=== PATIENT | male | born 1975 | race Caucasian/White ===

== ENCOUNTER 2017-04-02 23:35 | Emergency (ER) | payer OTHER ==
[2017-04-03 00:18] VITALS: BP 125/67; PULSE 65; TEMP 98.1; BMI 23.3
[2017-04-03] MEDS ORDERED: KETOROLAC TROMETHAMINE 60 MG/2 ML VIAL IM ONE (00:57)
[2017-04-03] MEDS ORDERED: KETOROLAC TROMETHAMINE 30 MG/1 ML VIAL ONE (01:03)
--- NOTE | 2017-04-03 01:52 | PDOC ---
History of Present Illness - General Chief Complaint: Back Pain Stated Complaint: PAIN Time Seen by Provider: 04/03/17 00:45 - History of Present Illness Initial Comments: 04/03/17 01:44 CHIEF COMPLAINT: low back pain HISTORY OF PRESENT ILLNESS: 41 yo M with no PMH presents to ED with low back pain x 3 days. Patient states the pain is to b/l sides of his low back; denies loss of bowel or bladder function, inability to walk, loss of sensation to lower extremities, fever, chills, nausea, vomiting, diarrhea . No recent travel or sick contacts. PAST MEDICAL HISTORY: Denies past medical history FAMILY HISTORY: Denies SOCIAL HISTORY: Denies tobacco, alcohol, illicit drug use. SURGICAL HISTORY: Denies ALLERGIES: No known drug allergies REVIEW OF SYSTEMS as per HPI PHYSICAL EXAM General Appearance: Well-appearing, appropriately dressed. No apparent distress. HEENT: EOMI, PERRLA. No photophobia, scleral icterus. Respiratory/Chest: Lungs CTAB. Cardiovascular: RRR. S1, S2. Gastrointestinal/Abdominal: Normal bowel sounds. Abdomen soft, non-distended. No tenderness or rebound tenderness. No organomegaly, pulsatile mass, guarding , hernia, hepatomegaly, splenomegaly. Musculoskeletal/Extremities: Tenderness to b/l lower back muscles on palpation. FROM of all extremities, normal capillary refill. Pelvis Stable. No CVA tenderness. No tenderness to extremities, pedal edema, swelling, erythema or deformity. Normal gait. Integumentary: Appropriate color, dry, warm. No cyanosis, erythema, jaundice or rash Neurologic: picker box operator II-XII intact. Fully oriented, alert. Appropriate mood/affect. Motor strength 5/5. No appreciable EOM palsy, facial droop or sensory deficit. 04/03/17 01:48 Past History - Past Medical History Allergies/Adverse Reactions: Allergies Allergy/AdvReac Type Severity Reaction Status Date / Time No Known Allergies Allergy Verified 04/03/17 00:18 Home Medications: Ambulatory Orders Cyclobenzaprine HCl [Flexeril -] 10 mg PO HS #7 tablet 04/03/17 Ibuprofen [Motrin -] 800 mg PO TID PRN 04/03/17 Naproxen [Naprosyn -] 375 mg PO Q12H #14 tablet 04/03/17 COPD: No - Suicide/Smoking/Psychosocial Hx Smoking History: Never smoked *Physical Exam - Vital Signs Last Vital Signs Temp Pulse Resp BP Pulse Ox 98.1 F 65 16 125/67 98 04/03/17 00:09 04/03/17 00:09 04/03/17 00:09 04/03/17 00:09 04/03/17 00:09 ED Treatment Course - Medications Given in the ED: ED Medications Discontinued Medications Generic Name Dose Route Start Last Admin Trade Name Elizabeth PRN Reason Stop Dose Admin Ketorolac Tromethamine 30 mg 04/03/17 00:57 04/03/17 01:09 Toradol Injection - IM 04/03/17 00:58 30 mg ONCE ONE Administration Medical Decision Making - Medical Decision Making 04/03/17 01:52 41 yo M with no PMH presents to ED with low back pain x 3 days. -Toradol IM Patient drove to ED, will send cyclobenzaprine rx to pharm. Advised patient to take medications as prescribed and f/u with ortho. Advised patient of signs and symptoms for return to ER; patient verbalized understanding and agrees to plan. *DC/Admit/Observation/Transfer Diagnosis at time of Disposition: Low back pain - Discharge Dispostion Disposition: HOME Condition at time of disposition: Stable Admit: No - Prescriptions Prescriptions: Cyclobenzaprine HCl [Flexeril -] 10 mg PO HS #7 tablet Naproxen [Naprosyn -] 375 mg PO Q12H #14 tablet - Referrals Referrals: Jamie Hernandez MD [Primary Care Provider] - Tucker Guevara MD [Staff Physician] - - Patient Instructions Printed Discharge Instructions: DI for Low Back Pain Additional Instructions: Please take medications as prescribed. Start taking the Naproxen TOMORROW, and STOP taking the ibuprofen (brand names are Motrin/Advil). Do NOT drive, drink alcohol, or operate heavy machinery while taking cyclobenzaprine. Please follow up with orthopedics if your pain persists past 2-3 days while taking this medication. If you develop ANY loss of bowel or bladder function, loss of sensation to your legs, inability to walk, or any new or worsening symptoms, please return to the ER. - Post Discharge Activity
== END 2017-04-03 02:21 | disposition home or self-care (01) ==
LOC: JER 23:35
PROC: 3E0233Z Introduction of Anti-inflammatory into Muscle, Percutaneous Approach (ICD-10-PCS; principal; 2017-04-02)
DX: M54.5 Low back pain (principal)
CPT/HCPCS: 99281-25

== ENCOUNTER 2022-12-04 00:48 | Emergency (ER) | payer OTHER ==
[2022-12-04 01:06] VITALS: BP 132/71; PULSE 80; RESP 20; TEMP 98; BMI 25.4
[2022-12-04] MEDS ORDERED: DIPHTH,PERTUSS(ACELL),TET 0.5 ML DISP.SYRIN IM ONE ×2 (01:10→01:26)
[2022-12-04] MEDS ORDERED: ACETAMINOPHEN 500 MG TABLET (FP) PO ONE (01:16)
[2022-12-04] MEDS ORDERED: ACETAMINOPHEN 325 MG TABLET (FP) ONE (01:26)
== END 2022-12-04 01:43 | disposition home or self-care (01) ==
LOC: JER 00:48
PROC: 0HQGXZZ Repair Left Hand Skin, External Approach (ICD-10-PCS; principal; 2022-12-04)
PROC: 3E0234Z Introduction of Serum, Toxoid and Vaccine into Muscle, Percutaneous Approach (ICD-10-PCS; 2022-12-04)
DX: S51.812A Laceration without foreign body of left forearm, initial encounter (principal); W26.8XXA Contact with other sharp object(s), not elsewhere classified, initial encounter; Y93.89 Activity, other specified; Y92.9 Unspecified place or not applicable
CPT/HCPCS: 12001-25; 90471; 90715; 99282-25